=== PATIENT | female | born 1990 | race Caucasian/White ===

== ENCOUNTER → 2023-08-30 07:47 | Outpatient (REF) | payer OTHER, SELFPAY | LOC: HWRAD 07:47 | PROVIDERS: ATTENDING PHYSICIAN Obstetrics & Gynecology; FAMILY PHYSICIAN Nurse Practitioner Adult Health | DX: Z34.90 Encounter for supervision of normal pregnancy, unspecified, unspecified trimester (principal) | CPT/HCPCS: 76801 ==

== ENCOUNTER → 2023-09-18 15:41 | Outpatient (REF) | payer OTHER, SELFPAY | LOC: PNTC 15:41 | PROVIDERS: ATTENDING PHYSICIAN Obstetrics & Gynecology | DX: Z36.0 Encounter for antenatal screening for chromosomal anomalies (principal); Z36.82 Encounter for antenatal screening for nuchal translucency | CPT/HCPCS: 76801; 76813 ==

== ENCOUNTER → 2023-11-11 10:09 | Outpatient (REF) | payer OTHER, SELFPAY | LOC: PNTC 10:09 | PROVIDERS: ATTENDING PHYSICIAN Obstetrics & Gynecology | DX: Z34.82 Encounter for supervision of other normal pregnancy, second trimester (principal); O43.219 Placenta accreta, unspecified trimester | CPT/HCPCS: 76805; 93976 ==

== ENCOUNTER → 2024-01-06 13:04 | Outpatient (REF) | payer OTHER, SELFPAY | LOC: PNTC 13:04 | PROVIDERS: ATTENDING PHYSICIAN Obstetrics & Gynecology | DX: O34.219 Maternal care for unspecified type scar from previous cesarean delivery (principal) | CPT/HCPCS: 76816 ==

== ENCOUNTER 2024-03-29 08:11 | Inpatient (IN) | payer OTHER, SELFPAY ==
[2024-03-29 08:37] VITALS: BP 114/62; BMI 28.4
[2024-03-29 09:22] LABS: % Basophils 0.4 % (0-2); % Eosinophils 0.4 % (0-6); % Immature Granulocytes 0.8 % (0-0.5); % Lymphocytes 16.8 % (20.5-51.1); % Monocytes 6.4 % (1.7-9.3); % Neutrophils 75.2 % (42.2-75.2); Absolute Immature Granulocytes 0.1 10^3/uL (0-0.05); Absolute Lymphocytes 1.9 10^3/uL (1.2-3.4); Absolute Monocytes 0.7 10^3/uL (0.1-0.6); Absolute Neutrophils 8.4 10^3/uL (1.4-6.5); Hematocrit 37.4 % (37.0-47.0); Hemoglobin 13.5 g/dL (12.0-16.0); Mean Corp Hgb Conc. 36.1 g/dL (33.0-37.0); Mean Corpuscular Hgb 33.5 pg (27.0-31.0); Mean Corpuscular Volume 92.8 fL (81.0-99.0); Mean Platelet Volume 11.7 fL (7.4-10.4); Nucleated Red Blood Cells % 0 %; Platelet Count 224 10^3/uL (130-400); Red Blood Cell Count 4.03 10^6/uL (4.20-5.40); Red Cell Dist. Width 12.1 % (11.5-14.5); White Blood Cell Count 11.2 10^3/uL (4.8-10.8)
[2024-03-29] MEDS: PENICILLIN 110 UNITS IV (09:40)
[2024-03-29] MEDS: FENTANYL/BUPIVACAINE 100 EPIDURAL ×2 (10:55→18:15)
[2024-03-29] MEDS: SUBLIMAZE 100 MCG EPIDURAL (10:55)
[2024-03-29] MEDS: LR 1000 IV (11:19)
[2024-03-29] MEDS: PENICILLIN 55 UNITS IV ×3 (13:25→21:21)
[2024-03-29] MEDS: TUMS EX (EXTRA STRENGTH) CHEWABLE 2 TABLET PO (22:09)
[2024-03-30] MEDS: PITOCIN 30 UNITS/NSS 500 ML IV
[2024-03-30] MEDS: MOTRIN 600 MG PO ×3 (04:27→20:07)
[2024-03-30] MEDS: SENOKOT-S 1 TABLET PO (08:32)
[2024-03-30] MEDS: PRENATAL PLUS 1 TABLET PO (08:32)
[2024-03-30 12:26] LABS: Hematocrit 29.2 % (37.0-47.0); Hemoglobin 10.4 g/dL (12.0-16.0)
[2024-03-31] MEDS: MOTRIN 600 MG PO ×2 (02:00→08:20)
[2024-03-31] MEDS: PRENATAL PLUS 1 TABLET PO (08:19)
[2024-03-31 15:12] LABS: Syphilis/T. pallidum Ab Reflex Negative (Negative)
== END 2024-03-31 12:23 | disposition home or self-care (01) | DRG 807 ==
LOC: LDRP 08:11
PROVIDERS: ADMITTING PHYSICIAN Obstetrics & Gynecology; ATTENDING PHYSICIAN Obstetrics & Gynecology; FAMILY PHYSICIAN Nurse Practitioner Adult Health
PROC: 0KQM0ZZ Repair Perineum Muscle, Open Approach (ICD-10-PCS; 2024-03-30)
PROC: 10907ZC Drainage of Amniotic Fluid, Therapeutic from Products of Conception, Via Natural or Artificial Opening (ICD-10-PCS; 2024-03-30)
PROC: 0W8NXZZ Division of Female Perineum, External Approach (ICD-10-PCS; 2024-03-30)
PROC: 10D07Z6 Extraction of Products of Conception, Vacuum, Via Natural or Artificial Opening (ICD-10-PCS; 2024-03-30)
DX: O34.219 Maternal care for unspecified type scar from previous cesarean delivery (principal); Z37.0 Single live birth; Z3A.40 40 weeks gestation of pregnancy; O75.81 Maternal exhaustion complicating labor and delivery; O70.1 Second degree perineal laceration during delivery; O99.824 Streptococcus B carrier state complicating childbirth
CPT/HCPCS: 88307; 85014; 85018; 85025; 86780; 86850; 86900; 86901